=== PATIENT | male | born 1990 | race Two or more races ===

== ENCOUNTER 2019-11-12 13:37 | Emergency (ER) | payer SELFPAY ==
[~2019-11-12] VITALS: Ht 170.2 cm; Wt 65.8 kg
[2019-11-12 17:33] VITALS: BP 136/89
== END 2019-11-12 17:40 | disposition home or self-care (01) ==
LOC: ER 13:37
DX: J02.9 Acute pharyngitis, unspecified (principal); K21.9 Gastro-esophageal reflux disease without esophagitis